=== PATIENT | female | born 1955 | race Caucasian/White ===

== ENCOUNTER → 2017-08-15 | Outpatient (CLI) | payer OTHER ==
[~2017-08-15] MED LIST: CALC-131 PO; CALC-260 PO; FOSA70TA PO; MULT1TAB PO; VITA-13; VITA100064 PO
[2017-08-15 07:52] LABS: AUTOMATED NEUTROPHIL # 3.5 TH/MM3 (1.8-7.7); BASOPHIL % 0.5 % (0.0-2.0); EOSINOPHIL # 0.1 TH/MM3 (0-0.4); LYMPH % 24.7 % (9.0-44.0); LYMPHOCYTE # 1.4 TH/MM3 (1.0-4.8); MEAN CELL VOLUME 93.8 FL (80.0-100.0); MEAN CORPUSCULAR HEMOGLOBIN 32.8 PG (27.0-34.0); MEAN PLATELET VOLUME 9.2 FL (7.0-11.0); MONO % 9.5 % (0.0-8.0); MONOCYTE # 0.5 TH/MM3 (0-0.9); NEUT % 63.3 % (16.0-70.0); PLATELET COUNT 214 TH/MM3 (150-450); RED BLOOD COUNT 4.59 MIL/MM3 (4.00-5.30); RED CELL DISTRIBUTION WIDTH 13.1 % (11.6-17.2); WHITE BLOOD COUNT 5.5 TH/MM3 (4.0-11.0)
[2017-08-15 08:12] LABS: ALBUMIN 4.1 GM/DL (3.4-5.0); AST (GOT) 33 U/L (15-37); BICARBONATE 28.5 MEQ/L (21.0-32.0); BLOOD UREA NITROGEN 17 MG/DL (7-18); CALCIUM 9.4 MG/DL (8.5-10.1); CHLORIDE 102 MEQ/L (98-107); CREATININE 0.82 MG/DL (0.50-1.00); GLOMERULAR FILTRATION RATE 71 ML/MIN (>89); GLUCOSE,FASTING 78 MG/DL (74-99); SODIUM (NA) 137 MEQ/L (136-145)
[2017-08-15 08:15] LABS: ALKALINE PHOSPHATASE 73 U/L (45-117); ALT (GPT) 27 U/L (10-53); TOTAL BILIRUBIN ADULT 1.2 MG/DL (0.2-1.0)
== END ==
LOC: CLAB 07:23
PROVIDERS: ATTEND Family Medicine
DX: E78.2 Mixed hyperlipidemia (principal); E55.9 Vitamin D deficiency, unspecified; M81.0 Age-related osteoporosis without current pathological fracture; D18.03 Hemangioma of intra-abdominal structures
CPT/HCPCS: 36415; 80053; 82306; 85025

== ENCOUNTER → 2017-08-17 | Outpatient (CLI) | payer OTHER ==
[~2017-08-17] VITALS: Ht 160 cm; Wt 58.4 kg
[~2017-08-17] MED LIST changes: -CALC-131 PO; +CHLORHEXIDINE GLUCONATE 2 % 1 PACK (2 CLOTHS) TOPICAL PRN; +LACTATED RINGER'S 1000 ML IV PRN; +LIDOCAINE HCL 1% PF 5 ML SYRINGE OTHER ONE; +METOPROLOL TARTRATE 25 MG TAB PO PRN; +POVIDONE IODINE 5% (ANTISEPSIS KIT) 4 APPLICATIONS EACH NARE PRN; +PROPOFOL 200 MG/20 ML AMP IV ONE; +SODIUM CHLORID 0.9% 500 ML IV PRN; -VITA-13
--- NOTE | 2017-08-17 13:51 | GIPROC ---
[facility] [address] [facility]. [facility] [place], [address] COLONOSCOPY PROCEDURE REPORT EXAM DATE: 08/17/2017 PATIENT NAME: Bianca Landaverde MR #: [id number] BIRTHDATE: 1955 ENDOSCOPIST: Jonathan Abbott MD ORDER #: [id number] NURSING PROGRAM DIRECTOR: STATUS: outpatient INDICATIONS: The patient is a 62 yr old female here for a colonoscopy due to screening; average risk. PROCEDURE PERFORMED: Colonoscopy, screening MEDICATIONS: Per Anesthesia and None. PREP QUALITY: excellent ESTIMATED BLOOD LOSS: None CONSENT: The patient understands the risks and benefits of the procedure and understands that these risks include, but are not limited to: sedation, allergic reaction, infection, perforation and/or bleeding. Alternative means of evaluation and treatment include, among others: physical exam, x-rays, and/or surgical intervention. The patient elects to proceed with this endoscopic procedure. medical equipment was checked for proper function. Hand hygiene and appropriate measures for infection prevention was taken. After the risks, benefits and alternatives of the procedure were thoroughly explained, Informed consent was verified, confirmed and timeout was successfully executed by the treatment team. A digital exam The endoscope was introduced through the anus and advanced to the cecum, which was identified by both the appendix and ileocecal valve. The instrument was then slowly withdrawn as the colon was fully examined. COLON FINDINGS: The colonic mucosa appeared normal. Retroflexion was performed and was normal The scope was then completely withdrawn from the patient and the procedure terminated. ADVERSE EVENTS: There were no complications. IMPRESSIONS: 1. The colonic mucosa appeared normal 2. Retroflexion was performed and was normal RECOMMENDATIONS: Resume prior diet and medications RECALL: Return 10 years Colonoscopy Jonathan Abbott MD eSigned: Jonathan Abbott MD 08/17/2017 1:50 PM cc: Jameel Cohen M.D.
[2017-08-17 14:30] VITALS: BP 110/71; PULSE 54; RESP 16; TEMP 98.3; O2SAT 98
--- NOTE | 2017-08-18 09:25 | EKG ---
Date Performed: 08/17/2017 Time Performed: 10:47:59 PTAGE: 62 years EKG: SINUS BRADYCARDIA LEFT ANTERIOR FASCICULAR BLOCK NONSPECIFIC T-WAVE ABNORMALITY ABNORMAL EC G Compared to PREVIOUS TRACING , anterior T-wave changes are new. PREVIOUS TRACIN10/09/2014 17.26 DOCTOR: Jose Owen Interpretating Date/Time 08/18/2017 09:24:20
== END ==
LOC: HEND 10:12
DX: Z12.11 Encounter for screening for malignant neoplasm of colon (principal); R00.1 Bradycardia, unspecified; I44.4 Left anterior fascicular block
CPT/HCPCS: 93005